=== PATIENT | female | born 1990 | race Caucasian/White ===

== ENCOUNTER 2021-03-12 17:57 | Emergency (ER) | payer MEDICAID ==
[~2021-03-12] VITALS: Ht 162.6 cm; Wt 90.5 kg
[2021-03-12] MEDS ORDERED: HYDROcodone/APAP 5/325 TABLET PO ONE (18:30)
[2021-03-12] MEDS ORDERED: ONDANSETRON ODT 4 MG PO ONE (18:30)
[2021-03-12] MEDS ORDERED: ONDANSETRON ODT 4 MG ONE (20:13)
[2021-03-12] MEDS ORDERED: HYDROcodone/APAP 5/325 TABLET ONE (20:13)
[2021-03-12] MEDS ORDERED: OMNIPAQUE 350 MG/ML, 100ML BOTTLE ONE (20:20)
[2021-03-12] MEDS ORDERED: CARBAMAZEPINE 200 MG TABLET ONE (20:26)
[2021-03-12] MEDS ORDERED: CARBAMAZEPINE 100 MG TAB.CHEW PO ONE (20:30)
--- NOTE | 2021-03-12 20:40 | NUR ---
piv established, labs drawn, medicated per emar. pt states pain has been going on for about a week, pt crying and having a hard time focusing at this time. vss, pt on monitors
[2021-03-12 20:46] LABS: BASOPHILS % (AUTO) 1 % (0-1); EOSINOPHILS % (AUTO) 4 % (1-7); LYMPHOCYTES % (AUTO) 24 % (22-44); MD NO; MEAN CORPUSCULAR HEMOGLOBIN 30.4 pg (27.0-34.8); MEAN CORPUSCULAR HGB CONC 33.7 g/dL (32.4-35.8); MEAN PLATELET VOLUME 8.9 fL (7.4-10.4); MONOCYTES % (AUTO) 8 % (2-9); NEUTROPHILS % (AUTO) 62 % (42-75); PLATELET COUNT 301 x10^3/uL (130-400); RED BLOOD COUNT 4.63 x10^6/uL (3.82-5.3); RED CELL DISTRIBUTION WIDTH 12.8 % (9.6-15.2)
[2021-03-12 20:56] LABS: ANION GAP 6 mmol/L (5-15); CALCIUM 9.1 mg/dL (8.5-10.1); CHLORIDE 108 mmol/L (98-107)
--- NOTE | 2021-03-12 21:25 | NUR ---
pt to ct
[2021-03-12 21:39] VITALS: BP 121/73
--- NOTE | 2021-03-12 21:40 | NUR ---
pt back from ct, stated that she was feeling better and then the contrast gave her a headache again. monitors in place, lights turned off and provided warm blanket
== END 2021-03-12 23:04 | disposition home or self-care (01) ==
LOC: ED 18:27
DX: G93.5 Compression of brain (principal); R51.9 Headache, unspecified; G50.0 Trigeminal neuralgia
CPT/HCPCS: 36415; 70450; 70487; 80048; 84703; 85025; 99285; Q0162; Q9967

== ENCOUNTER 2021-03-13 18:28 | Emergency (ER) | payer MEDICAID ==
[~2021-03-13] VITALS: Ht 162.6 cm; Wt 90.5 kg
--- NOTE | 2021-03-13 20:14 | NUR ---
PT TO ROOM 13 W/ C/O R SIDE HEAD, NECK, EAR, EYE, NOSTRIL PAIN STARTED 8 DAYS AGO. PT STATES SHE WENT TO SEE DENTIST AND WAS TOLD SHE HAD AN INFECTION IN HER TOOTH AND WAS GIVEN IBUPROFEN AND ABX. PT THEN CAME TO ED YESTERDAY FOR PAIN AND WAS TOLD SHE HAD TRIGEMINAL NEURALGIA AND WAS GIVEN TEGRETOL W/O RELIEF. PT STATES PAIN 10/10. TEARFUL IN ROOM. PT RESTING ON GURNEY. WARM BLANKET PROVIDED. VSS.
[2021-03-13] MEDS ORDERED: DIPHENHYDRAMINE 25 MG CAPSULE PO ONE (20:30)
[2021-03-13] MEDS ORDERED: HYDROcodone/APAP 5/325 TABLET ONE (20:30)
[2021-03-13] MEDS ORDERED: BACLOFEN 10 MG TABLET PO ONE (20:30)
[2021-03-13] MEDS ORDERED: HYDROcodone/APAP 5/325 TABLET PO ONE (20:30)
[2021-03-13] MEDS ORDERED: DIPHENHYDRAMINE 25 MG CAPSULE ONE (20:30)
[2021-03-13] MEDS ORDERED: GABAPENTIN 300 MG CAPSULE ONE (20:41)
[2021-03-13] MEDS ORDERED: DIAZEPAM 5 MG TABLET ONE (20:41)
[2021-03-13] MEDS ORDERED: DIAZEPAM 5 MG TABLET PO ONE (21:00)
[2021-03-13] MEDS ORDERED: ONDANSETRON ODT 4 MG ONE (21:00)
[2021-03-13] MEDS ORDERED: ONDANSETRON 4 MG TABLET PO ONE (21:00)
[2021-03-13] MEDS ORDERED: GABAPENTIN 300 MG CAPSULE PO ONE (21:00)
[2021-03-13 21:01] VITALS: BP 109/71
--- NOTE | 2021-03-13 21:02 | NUR ---
PT STATES IMPROVEMENT AFTER [employer]ANE [employer]LECT[employer]. PT STATES "MY JAW JUST STARTED RELAXING". PT SPEAKING W/ FULL JAW MOTION. PT PLACED FOR RECHECK.
--- NOTE | 2021-03-13 21:04 | NUR ---
REPORT GIVEN TO MANDY GREGORY.
== END 2021-03-13 22:37 | disposition home or self-care (01) ==
LOC: ED 20:42
DX: G50.0 Trigeminal neuralgia (principal); F17.200 Nicotine dependence, unspecified, uncomplicated
CPT/HCPCS: 99284; Q0162; Q0163